=== PATIENT | female | born 1990 | race Caucasian/White ===

== ENCOUNTER 2017-12-24 22:04 | Emergency (ER) | payer BC ==
[2017-12-24 22:16] VITALS: BP 109/73; PULSE 71; RESP 18; TEMP 97.8; O2SAT 100
--- NOTE | 2017-12-24 23:45 | C.PDOC ---
History Of Present Illness 27 year old female presents to the ER with a complaint of a continuous diffuse headache for the past 4 days, associated with occasional blurry vision. Patient has been taking tylenol at home with no relief. Patient reports that the pain is constant. Denies recent trauma, nausea, vomiting, fever, weakness, numbness, or photophobia. Time Seen by Provider: 12/24/17 22:18 Chief Complaint (Nursing): Headache History Per: Patient History/Exam Limitations: no limitations Onset/Duration Of Symptoms: Days Preceeding Symptoms: None Associated Symptoms: denies: Photophobia, Nausea, Vomiting Recent travel outside of the [place]: No Past Medical History Reviewed: Historical Data, Nursing Documentation, Vital Signs Vital Signs: Last Vital Signs Temp 97.8 F 12/24/17 22:13 Pulse 71 12/24/17 22:13 Resp 18 12/24/17 22:13 BP 109/73 12/24/17 22:13 Pulse Ox 100 12/25/17 00:09 Family History: States: Unknown Family Hx - Social History Hx Alcohol Use: No Hx Substance Use: No - Immunization History Hx Tetanus Toxoid Vaccination: No Hx Influenza Vaccination: No Hx Pneumococcal Vaccination: No Review Of Systems Constitutional: Negative for: Fever Eyes: Positive for: Vision Change (Occasional blurry vision) Gastrointestinal: Negative for: Nausea, Vomiting Musculoskeletal: Negative for: Neck Pain Neurological: Positive for: Headache. Negative for: Weakness, Numbness, Other ( Photophobia) Physical Exam - Physical Exam Appears: Non-toxic Skin: Normal Color, Warm, Dry Head: Atraumatic, Normacephalic Eye(s): bilateral: Normal Inspection, PERRL, EOMI Ear(s): Bilateral: Normal Nose: Normal Oral Mucosa: Moist Throat: Normal, No Erythema, No Exudate Neck: Normal, No Midline Cervical Tenderness, No Paracervical Tenderness, Supple Chest: Symmetrical, No Tenderness Cardiovascular: Rhythm Regular Respiratory: Normal Breath Sounds, No Rales, No Rhonchi, No Wheezing Extremity: Normal ROM (x4) Neurological/Psych: Oriented x3, Normal Speech, Normal Cognition, Normal Motor, Normal Sensation ED Course And Treatment O2 Sat by Pulse Oximetry: 100 (Room air) Pulse Ox Interpretation: Normal Medical Decision Making Medical Decision Making: Motrin and reglan administered. On reevaluation, patient is still reports having a headache, will give fioricet. On second reevaluation, patient is resting comfortably in the ER in no acute distress, tolerating PO, vitals are stable, will discharge home with instructions to follow up with PMD or return if symptoms worsen. Disposition - Disposition Referrals: [facility] at [facility] [Outside] Disposition: HOME/ ROUTINE Disposition Time: 23:43 Condition: IMPROVED Additional Instructions: Follow up with the medical doctor within 1-2 days. Return if worsened. Prescriptions: Acetaminophen/Butalbital/Caf [Fioricet] 1 tab PO TID PRN #20 tab PRN Reason: Headache Ibuprofen [Motrin] 1 tab PO TID PRN #30 tab PRN Reason: Pain Instructions: Headache, Adult Forms: [employer] (Chinese) - Clinical Impression Clinical Impression: Headache - Scribe Statement The provider has reviewed the documentation as recorded by the Scribe Dariusz Chowdary All medical record entries made by the Scribe were at my direction and personally dictated by me. I have reviewed the chart and agree that the record accurately reflects my personal performance of the history, physical exam, medical decision making, and the department course for this patient. I have also personally directed, reviewed, and agree with the discharge instructions and disposition.
[2017-12-25] MEDS ORDERED: Apap-Butalbital-Caffeine 325-50-40mg Tab PO STA (00:08)
[2017-12-25] MEDS ORDERED: Apap-Butalbital-Caffeine 325-50-40mg Tab ONE (00:13)
== END 2017-12-25 00:33 | disposition home or self-care (01) ==
LOC: C.ER 22:04
DX: R51 Headache (principal)

== ENCOUNTER 2018-03-05 11:07 | Emergency (ER) | payer BC ==
[2018-03-05 11:26] VITALS: O2SAT 100
--- NOTE | 2018-03-05 12:43 | C.PDOC ---
History Of Present Illness 27 y/o, 10 weeks , female with 2 self inflicted knife wounds on left wrist presents to ED for complaints of itching, hives, and swelling all over the lacerations after removing last dressing change 2 days ago. Patient states she lacerations were sustained on 02/22 and was seen in [facility] since then they have been heeling with frequent dressing changes. Patient also states she saw an orthopedics and was given a course of Keflex. Patient also reports taking Benadryl and applying cortisone cream for relief. Denies fever or any other physical complaints. Time Seen by Provider: 03/05/18 12:05 Chief Complaint (Nursing): Abnormal Skin Integrity History Per: Patient History/Exam Limitations: no limitations Onset/Duration Of Symptoms: Days (2) Current Symptoms Are (Timing): Still Present Location Of Injury: Left: Wrist Quality Of Symptoms: Itching, Swollen Recent travel outside of the [place]: No Past Medical History Reviewed: Historical Data, Nursing Documentation, Vital Signs Vital Signs: Last Vital Signs Temp 99.2 F 03/05/18 13:33 Pulse 82 03/05/18 13:33 Resp 16 03/05/18 13:33 BP 112/70 03/05/18 13:33 Pulse Ox 100 03/05/18 13:33 - Medical History PMH: No Chronic Diseases Surgical History: No Surg Hx Family History: States: Unknown Family Hx - Social History Hx Alcohol Use: No Hx Substance Use: No - Immunization History Hx Tetanus Toxoid Vaccination: No Hx Influenza Vaccination: No Hx Pneumococcal Vaccination: No Review Of Systems Constitutional: Negative for: Fever, Chills Gastrointestinal: Negative for: Nausea, Vomiting, Abdominal Pain, Diarrhea Skin: Positive for: Rash (Hives, itching, and swelling all over the two laceration sights ) Neurological: Negative for: Weakness, Numbness Physical Exam - Physical Exam Appears: Well, Non-toxic, No Acute Distress Skin: Rash (Urticaria surrounding lacerations), Other (Two 6cm lacerations to left volar wrist with sutures in place, swelling, and dried serous drainage. No active bleeding. No induration or warmth. ) Eye(s): bilateral: Normal Inspection, PERRL, EOMI Oral Mucosa: Moist Cardiovascular: Rhythm Regular Respiratory: Normal Breath Sounds, No Decreased Breath Sounds, No Rales, No Rhonchi, No Wheezing Extremity: Normal ROM, No Deformity Extremity: Bilateral: Atraumatic, Normal ROM Pulses: Left Radial: Normal, Right Radial: Normal Neurological/Psych: Oriented x3, Normal Speech, Normal Motor, Normal Sensation, Normal Reflexes Gait: Steady ED Course And Treatment O2 Sat by Pulse Oximetry: 100 (RA) Pulse Ox Interpretation: Normal Medical Decision Making Medical Decision Making: Patient with swelling, urticaria and blisters to laceration site- but no warmth , erythema (other than urticarial rash) or induration. Patient reports itching. Likely dermatitis rather than cellulitis. Patient is already on Keflex, advised her to continue this. Meanwhile she was advised to take antihistamines for itching. Patient was also evaluated by crisis due to self-inflicted lacerations , but patient denies SI/HI and refused referrals. Patient advised to keep wounds clean and dry, can keep uncovered if this is more comfortable. Avoid using [place] wraps or other similar constrictive dressings. Return to the ED for any new or worsening symptoms. Disposition - Disposition Disposition: HOME/ ROUTINE Disposition Time: 13:33 Condition: GOOD Additional Instructions: TYREL HUANG, thank you for letting us take care of you today. Your provider was Milagros Bowen MD and you were treated for POSSIBLE INFECTED LACERATION. The emergency medical care you received today was directed at your acute symptoms. If you were prescribed any medication, please fill it and take as directed. It may take several days for your symptoms to resolve. Return to the Emergency Department if your symptoms worsen, do not improve, or if you have any other problems. Please contact your doctor or call one of the physicians/clinics you have been referred to that are listed on the Patient Visit Information form that is included in your discharge packet. Bring any paperwork you were given at discharge with you along with any medications you are taking to your follow up visit. Our treatment cannot replace ongoing medical care by a primary care provider outside of the emergency department. Thank you for allowing the [facility] team to be part of your care today. If you had an X-Ray or CT scan: A Radiologist will review the ED reading if any change in treatment is needed we will contact you. If you had a blood, urine, or wound culture: It will take several days for the results, if any change in treatment is needed we will contact you. If you had an STI test: It will take 48 hours for the results. Please call after 1 week if you have not heard back. Instructions: Contact Dermatitis (DC), Laceration Repair With Stitches (DC) Forms: [employer] (Swedish) - Clinical Impression Clinical Impression: Allergic contact dermatitis, Visit for wound check - Scribe Statement The provider has reviewed the documentation as recorded by the Scribe Dieter Fam All medical record entries made by the Scribe were at my direction and personally dictated by me. I have reviewed the chart and agree that the record accurately reflects my personal performance of the history, physical exam, medical decision making, and the department course for this patient. I have also personally directed, reviewed, and agree with the discharge instructions and disposition.
[2018-03-05 13:35] VITALS: BP 112/70; PULSE 82; RESP 16; TEMP 99.2
== END 2018-03-05 13:35 | disposition home or self-care (01) ==
LOC: C.ER 11:07
DX: L23.89 Allergic contact dermatitis due to other agents (principal); Z48.89 Encounter for other specified surgical aftercare

== ENCOUNTER 2018-10-26 02:30 | Emergency (ER) | payer SELFPAY ==
[2018-10-26 02:40] VITALS: RESP 20
[2018-10-26] MEDS ORDERED: Sodium Chloride 0.9% 1,000 ML IV ONE (02:44)
--- NOTE | 2018-10-26 02:47 | C.PDOC ---
History Of Present Illness 28 year old female presents to the ED c/o sudden onset RUQ abdominal pain that started tonight. Patient describes her pain as severe associated with some nausea. Patient denies fever, chills, CP, SOB, palpitations, rash, back pain, d ysuria, vomit, diarrhea. Chief Complaint (Nursing): Abdominal Pain History Per: Patient History/Exam Limitations: no limitations Onset/Duration Of Symptoms: Sudden Onset Current Symptoms Are (Timing): Still Present Severity: Severe Location Of Pain/Discomfort: RUQ Radiation Of Pain To:: None Quality Of Discomfort: "Pain" Associated Symptoms: Nausea. denies: Vomiting, Diarrhea, Urinary Symptoms Recent travel outside of the [place]: No Additional History Per: Patient Abnormal Vaginal Bleeding: No Past Medical History Reviewed: Historical Data, Nursing Documentation, Vital Signs Vital Signs: Last Vital Signs Temp 98.0 F 10/26/18 02:37 Pulse 87 10/26/18 02:37 Resp 20 10/26/18 02:37 BP 121/80 10/26/18 02:37 Pulse Ox 100 10/26/18 02:37 - Medical History PMH: No Chronic Diseases Denies: Chronic Kidney Disease Surgical History: No Surg Hx Family History: States: Unknown Family Hx - Social History Hx Alcohol Use: No Hx Substance Use: No - Immunization History Hx Tetanus Toxoid Vaccination: No Hx Influenza Vaccination: No Hx Pneumococcal Vaccination: No Review Of Systems Constitutional: Negative for: Fever, Chills Cardiovascular: Negative for: Chest Pain, Palpitations Respiratory: Negative for: Shortness of Breath Gastrointestinal: Positive for: Nausea, Abdominal Pain. Negative for: Vomiting, Diarrhea Genitourinary: Negative for: Dysuria Musculoskeletal: Negative for: Back Pain Skin: Negative for: Rash Neurological: Negative for: Weakness, Numbness Physical Exam - Physical Exam Appears: Non-toxic, In Acute Distress Skin: Normal Color, Warm, Dry Head: Atraumatic, Normacephalic Eye(s): bilateral: Normal Inspection Oral Mucosa: Moist Neck: Normal ROM, Supple Chest: Symmetrical Cardiovascular: Rhythm Regular Respiratory: Normal Breath Sounds, No Rales, No Rhonchi, No Wheezing Gastrointestinal/Abdominal: Soft, Tenderness (RUQ/epigastric, questionable Falcon's ), No Guarding, No Rebound Rectal: Heme Negative, Maroon Stool Back: No CVA Tenderness Extremity: Normal ROM, No Tenderness, No Swelling Neurological/Psych: Oriented x3, Normal Speech, Normal Cognition Gait: Steady ED Course And Treatment - Laboratory Results Result Diagrams: 10/26/18 03:58 10/26/18 03:11 O2 Sat by Pulse Oximetry: 100 (ON RA) Pulse Ox Interpretation: Normal - CT Scan/US CT abd/pelvis Other Rad Studies (CT/US): Read By Radiologist, Radiology Report Reviewed CT/US Interpretation: CT SCAN OF THE ABDOMEN AND PELVIS WITH CONTRAST. CLINICAL HISTORY: Right upper abdominal pain. TECHNIQUE: Multiple axial and coronal CT images were obtained through the abdomen and pelvis after administration of intravenous contrast material. COMMENTS: Fluid-filled distended stomach. Flu id-filled distal small bowel. Uncomplicated colonic diverticulosis. Fluid- filled the colon. The liver is of uniform attenuation without mass or defect. There is no intra or extrahepatic biliary ductal dilatation. The spleen is normal. The gallbladder is within normal limits. The pancreas is of normal contour and attenuation characteristics. There is no evidence of adrenal mass. Both kidneys demonstrate prompt and equal nephrograms. The kidneys are normal in size, shape and configuration. There is no evidence of renal or ureteral mass. No renal or ureteral calculi are identified. There is no hydroureter or hydronephrosis. No evidence for appendicitis. There is no bowel wall thickening. No evidence for small or large bowel obstruction. There is no evidence of abdominal ascites or lymphadenopathy. There is no evidence of intrinsic or extrinsic bladder mass. There is no pelvic ascites or lymphadenopathy. Images of the lung bases show no evidence of pleural or parenchymal mass. There are no pleural effusions. The bony structures are free of lytic or blastic lesions. IMPRESSION: Ileus versus developing enteritis. Thank you for your kind referral of this patient. . Electronically signed on Oct 26, 2018 4:42:04 AM EDT by: Marilyn Rangel M.D., Certified by ABR, MSK, Neuroradiology Medical Decision Making Medical Decision Making: Plan: * CT abd/pelvis * Labs * Bentyl 20 mg IM * Pepcid 20 mg IVP * IV fluids * Toradol 30 mg IVP * UAVS remien 04:47- on reevaluation patient asymptomatic, no longer abdominal pain. Patient's vital signs remained stable. CBC showed microcitoc hypochromic anemia, patient remained asymptomatic despite the anemia. . Occult blood negative, patient remained asymptomatic and stable for D/C . Patient refused to have blood transfusion done. Disposition Counseled Patient/Family Regarding: Diagnosis - Disposition Referrals: [facility] [Outside] Disposition: HOME/ ROUTINE Disposition Time: 05:12 Condition: STABLE Additional Instructions: FF UP IN CLINIC IN 1 TO 2 DAYS. Prescriptions: Ferrous Sulfate [Feosol] 324 mg PO BID #30 ect Multivit,Iron,Min 5/Folic Acid [Strovite Forte Caplet] 1 each PO DAILY #30 tablet Instructions: Anemia Caused by Low Iron, Acute Abdomen (Belly Pain), Adult (DC) Forms: [employer] (Serbian) - POA Present On Arrival: None - Clinical Impression Clinical Impression: Abdominal pain, Anemia - Scribe Statement The provider has reviewed the documentation as recorded by the Scribe Kuldeep Dick All medical record entries made by the Scribe were at my direction and personally dictated by me. I have reviewed the chart and agree that the record accurately reflects my personal performance of the history, physical exam, medical decision making, and the department course for this patient. I have also personally directed, reviewed, and agree with the discharge instructions and d isposition.
[2018-10-26] MEDS ORDERED: Sodium Chloride 0.9% 1,000 ML ONE (02:53)
[2018-10-26 03:16] LABS: BASO % 0.8 % (0.0-2.0); EOS # 0.2 K/uL (0.0-0.7); EOS % 3.1 % (0.0-4.0); HEMOGLOBIN 7.3 g/dL (11.0-16.0); LYMPH # 2.2 K/uL (1.0-4.3); MEAN CELL VOLUME 57.7 fL (81.0-99.0); MEAN CORPUSCULAR HEMOGLOBIN 17.2 pg (27.0-31.0); MEAN CORPUSCULAR HGB CONC 29.8 g/dL (33.0-37.0); MEAN PLATELET VOLUME 7.6 fL (7.2-11.7); MONO # 0.4 K/uL (0.0-0.8); MONO % 7.7 % (0.0-10.0); NEUT # 2.6 K/uL (1.8-7.0); NEUT % 48.4 % (50.0-75.0); RBC 4.25 Mil/uL (3.80-5.20); RED CELL DISTRIBUTION WIDTH 19.7 % (11.5-14.5); WHITE BLOOD COUNT 5.4 K/uL (4.8-10.8)
[2018-10-26 03:25] LABS: SQUAMOUS EPITHIAL < 1 /hpf (0-5); URINE BILIRUBIN NEGATIVE (NEGATIVE); URINE BLOOD NEGATIVE (NEGATIVE); URINE CLARITY Clear (Clear); URINE COLOR Yellow (YELLOW); URINE GLUCOSE (UA) NORMAL (Normal); URINE LEUKOCYTE ESTERASE NEG Leu/uL (Negative); URINE PROTEIN 1+ mg/dL (NEGATIVE); URINE UROBILINOGEN NORMAL mg/dL (0.2-1.0)
[2018-10-26 03:28] LABS: HCG,QUALITATIVE URINE NEGATIVE (NEGATIVE)
[2018-10-26 03:36] LABS: ALB/GLOB RATIO 1.3 (1.0-2.1); ALBUMIN 4.2 g/dL (3.5-5.0); ALT/SGPT 64 U/L (9-52); AST/SGOT 54 U/L (14-36); BLOOD UREA NITROGEN 15 mg/dL (7-17); CALCIUM 9.3 mg/dl (8.6-10.4); GFR NON-AFRICAN AMERICAN > 60; LIPASE 180 U/L (23-300)
[2018-10-26] MEDS ORDERED: Iodixanol 320 MG/ML 100 ML BOTTLE IV ONE (03:48)
[2018-10-26 04:02] LABS: HEMOGLOBIN 6.8 g/dL (11.0-16.0); MEAN CELL VOLUME 58.1 fL (81.0-99.0); MEAN CORPUSCULAR HEMOGLOBIN 17.3 pg (27.0-31.0); MEAN CORPUSCULAR HGB CONC 29.7 g/dL (33.0-37.0); MEAN PLATELET VOLUME 8.4 fL (7.2-11.7); RBC 3.94 Mil/uL (3.80-5.20); RED CELL DISTRIBUTION WIDTH 19.3 % (11.5-14.5); WHITE BLOOD COUNT 5.1 K/uL (4.8-10.8)
[2018-10-26 04:13] VITALS: PULSE 76; TEMP 98.2
[2018-10-26 04:24] LABS: IRON 11 ug/dL (37-170)
[2018-10-26 04:25] VITALS: O2SAT 100
[2018-10-26 04:33] LABS: % IRON SATURATION 3 (20-55); TOTAL IRON BINDING CAPACITY 406 ug/dL (250-450)
[2018-10-26 04:57] VITALS: BP 117/67
--- NOTE | 2018-10-26 09:11 | CT ---
CT abdomen and pelvis History: Right-sided abdominal pain. Comparison: None available. Technique: Multiple contiguous axial images were performed through the abdomen and pelvis with the use of intravenous contrast. Subsequently, sagittal and coronal reformatted images were obtained. This CT exam was performed using one or more of the following dose reduction techniques: Automated exposure control, adjustment of the mA and/or kV according to patient size, and/or use of iterative reconstruction technique. Findings: Lung bases are clear. No pleural or pericardial effusion. 1.5 centimeter low-attenuation lesion seen within the right hepatic lobe demonstrating a Hounsfield unit attenuation of 89, indeterminate. Further evaluation with multiphasic contrast enhanced CT or MR is recommended if clinically indicated. Mild periportal edema. Contracted gallbladder. Spleen is preserved. Adrenal glands are preserved. Pancreas is preserved. Distended stomach with fluid and food substance noted. Thickened and distended loops of small bowel seen within the left upper and mid abdomen suggestive for an underlying enteritis. Right kidney: 3 millimeter punctate hypodensity, too small to adequately characterize. No calculi or hydronephrosis. Left Kidney: No calculi or hydronephrosis. Urinary bladder is preserved. Heterogeneous uterus and bilateral adnexa. Evaluation of the lower abdominal bowel demonstrates an underdistended sigmoid colon. Fecal retention in the remainder of the colon. Appendix appears partially imaged, fluid-filled and distended measuring up to 6 millimeters Few shotty para-aortic and inguinal lymph nodes. Impression: 1. Few thickened and distended loops of small bowel seen within the left and mid abdomen which may represent an underlying enteritis. Clinical correlation. 2. 1.5 centimeter low-attenuation lesion seen within the right hepatic lobe demonstrating a Hounsfield unit attenuation of 89, indeterminate. Further evaluation with multiphasic contrast enhanced CT or MR is recommended if clinically indicated. 3. Mild periportal edema. A preliminary report was generated at 4:42 a.m. on 10/26/[address] Marilyn Rangel from [employer]. This case was placed in the PA review folder.
== END 2018-10-26 05:39 | disposition home or self-care (01) ==
LOC: C.ER 02:30
DX: R10.11 Right upper quadrant pain (principal); D64.9 Anemia, unspecified
CPT/HCPCS: 74177; 80053; 81001; 81025; 82607; 82746; 83540; 83550; 83690; 84703; 85025; 85027; 86850; 86900; 87086; 96361; 96372; 96374; 96375; 99285; G0328; J0500; J1885; J7030; Q9967